=== PATIENT | male | born 1975 ===

== ENCOUNTER 2017-04-12 12:17 | Emergency (ER) | payer MEDICAID, OTHER ==
[~2017-04-12 12:17] MED LIST: Lactated Ringers 1,000 ML IV STA; Propofol 200 MG/20 ML SDV IVPUSH ONE; Propofol 200 MG/20 ML SDV ONE; Succinylcholine 200 MG/10 ML MDV IV STA
[2017-04-12] MEDS ORDERED: Succinylcholine 200 MG/10 ML MDV IV ONE (12:18)
[2017-04-12] MEDS ORDERED: Rocuronium 50 MG/5 ML Vial IVPUSH ONE ×2 (12:18→13:01)
[2017-04-12] MEDS ORDERED: Rocuronium 50 MG/5 ML Vial IV ONE (12:18)
[2017-04-12] MEDS ORDERED: fentaNYL 100 MCG/2 ML SDV ONE (12:36)
[2017-04-12] MEDS ORDERED: fentaNYL 100 MCG/2 ML SDV IVPUSH ONE ×2 (12:38→13:11)
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
[2017-04-12] MEDS ORDERED: Diphtheria,Pertussis(Acell),Tetanus Vaccine 0.5 ML Syringe IM ONE (12:41)
[2017-04-12] MEDS ORDERED: ceFAZolin 2 GM in Premix Bag 1 BAG IV ONE (12:44)
[2017-04-12] MEDS ORDERED: Sodium Chloride 0.9% 1,000 ML IV STA (12:51)
[2017-04-12 12:53] LABS: CHLORIDE,CL 106 mmol/L (98-110); SODIUM,NA 141 mmol/L (136-146)
--- NOTE | 2017-04-12 13:11 | CR ---
EXAMINATION: Portable chest radiograph. HISTORY: Trauma. FINDINGS: The trachea is midline. The cardiomediastinal silhouette is within normal limits. No pulmonary infilt rates, effusions or pneumothorax. There is an endotracheal tube noted in good position with tip 1.7 c m above the pearl. Osseous structures appear unremarkable. IMPRESSION: No acute cardiopulmonary process.
--- NOTE | 2017-04-12 13:13 | CR ---
EXAMINATION: Cervical spine HISTORY: Trauma COMPARISON: None TECHNIQUE: Lateral view only FINDINGS: The cervical spinal alignment is normal. The vertebral body heights and disc spaces appear well-maintained. Facet alignment is preserved. No fracture or dislocation noted on this single view. Prevertebral soft tissues are within normal limits. An endotracheal tube is noted. IMPRESSION: No acute osseous abnormality identified.
--- NOTE | 2017-04-12 13:24 | CR ---
EXAMINATION: Pelvis HISTORY: Trauma COMPARISON: None TECHNIQUE: AP view FINDINGS: There is no acute osseous abnormality, dislocation, or fracture. SI joints are symmetric. B one mineralization is normal. The iliopectineal and ileal inguinal lines are intact. IMPRESSION: Unremarkable pelvis.
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
== END 2017-04-12 13:17 ==
LOC: MW.ED 12:17 → EDBD 12:17 → MW.ED 13:17
DX: S01.112A Laceration without foreign body of left eyelid and periocular area, initial encounter (principal); S01.01XA Laceration without foreign body of scalp, initial encounter; M95.2 Other acquired deformity of head; Z23 Encounter for immunization; R00.0 Tachycardia, unspecified; I95.9 Hypotension, unspecified; V87.7XXA Person injured in collision between other specified motor vehicles (traffic), initial encounter
CPT/HCPCS: 31500; 36415; 36430; 51702; 71010; 72020; 72170; 80053; 80305; 81001; 85025; 86850; 86900; 86901; 86920; 86921; 86922; 90471; 90715; 96361; 96365; 96374; 96375; 99291; G0390; G0480; J0330; J0690; J3010; J7040; J7120; P9016; J2704

== ENCOUNTER 2022-08-28 13:53 | Emergency (ER) | payer SELFPAY ==
[2022-08-28] MEDS ORDERED: Sodium Chloride 0.9% 1,000 ML IV ONE (13:55)
[2022-08-28] MEDS ORDERED: Ondansetron 4 MG/2 ML SDV IVPUSH ONE ×2 (13:57→16:42)
[2022-08-28] MEDS ORDERED: Ondansetron 4 MG/2 ML SDV ONE (13:58)
[2022-08-28] MEDS ORDERED: Iopamidol 755 MG/ML 500 ML Multipack Bottle IVPUSH ONE (14:14)
[2022-08-28 16:31] LABS: BLOOD UREA NITROGEN,BUN 21 mg/dL (7.0-18.0); CARBON DIOXIDE,CO2 26.9 mmol/L (21.0-32.0); CHLORIDE,CL 105 mmol/L (98-107); GLUCOSE RANDOM 103 mg/dL (74-106); LIPASE 81 U/L (73-393); POTASSIUM,K 3.8 mmol/L (3.5-5.1); SODIUM,NA 140 mmol/L (136-148)
[2022-08-28 16:36] LABS: ESTIMATED GFR 105 mL/min (>60)
== END 2022-08-28 21:15 | disposition home or self-care (01) ==
LOC: MW.ED 13:53
DX: S09.90XA Unspecified injury of head, initial encounter (principal); J93.9 Pneumothorax, unspecified; W11.XXXA Fall on and from ladder, initial encounter
CPT/HCPCS: 36415; 70450; 71045; 71260; 72125; 72128; 72131; 74177; 80053; 80305; 80307; 81001; 83690; 83735; 84484; 85025; 85610; 85730; 93005; 96361; 96374; 96376; 99285; J2405; J7030; Q9967; 93010; 99284